=== PATIENT | male | born 1965 | race Caucasian/White ===

== ENCOUNTER 2017-04-02 16:48 | Emergency (ER) | payer BC ==
[2017-04-02 19:35] VITALS: BP 132/88
--- NOTE | 2017-04-02 19:39 | UC ---
Minor Trauma HPI - HPI Summary HPI Summary: Saturday night slipped on ice - fell back and landed on right side/rib no loc Sat was "sore" took Sun improved on Saturday sneezed and felt "cracking" to right ribs since this time increased pain in the area where landed Pt states thought :thre back out" pt laid in bed yesterday and today + heat applied support brace Pt states with "wrong movement" feels sharp pain no sob no n/v no bruising Took 400mg ibuprofen 6pm Took 2 tylenol this morning 8am without relief no change in pain with deep breath when pain comes/intensifies feels like stabbing pain no paresthesia arm pt wearing brace with good support pt's medications reviewed this visit - History of Current Complaint Chief Complaint: UCBackPain Stated Complaint: RIGHT SIDE RIB PAIN Time Seen by Provider: 04/02/17 19:18 Onset/Duration: Sudden Onset Onset Of Pain: Immediate Pain Intensity: 10 Pain Scale Used: 0-10 Numeric Mechanism Of Injury: Fall From A Standing Position Aggravating Factor(s): Coughing, Movement Alleviating Factor(s): Heat, OTC Meds, Other: - splint - Allergies/Home Medications Allergies/Adverse Reactions: Allergies Allergy/AdvReac Type Severity Reaction Status Date / Time No Known Allergies Allergy Verified 04/02/17 19:27 Home Medications: Home Medications Ibuprofen 400 mg PO 04/02/17 [History] PMH/Surg Hx/FS Hx/Imm Hx Previously Healthy: No - Surgical History Surgical History: Yes Surgery Procedure, Year, and Place: RIGHT HIP REPLACEMENT 2012 - Family History Known Family History: Positive: Other - mom cholesterol - Social History Occupation: Employed Full-time Lives: With Family Alcohol Use: Weekly Substance Use Type: None Smoking Status (MU): Never Smoked Tobacco Amount Used/How Often: ONCE A DAY Review of Systems Constitutional: Negative Skin: Negative Cardiovascular: Other All Other Systems Reviewed And Are Negative: Yes Physical Exam Triage Information Reviewed: Yes Appearance: Well-Appearing, No Pain Distress, Well-Nourished Vital Signs: Initial Vital Signs Temp 98.7 F 04/02/17 19:28 Pulse 73 04/02/17 19:28 Resp 16 04/02/17 19:28 BP 132/88 04/02/17 19:28 Pulse Ox 96 02/20/18 19:28 Vital Signs Reviewed: Yes Eye Exam: Normal Eyes: Positive: Conjunctiva Clear ENT Exam: Normal ENT: Positive: Normal ENT inspection, Hearing grossly normal, Pharynx normal Dental Exam: Normal Neck exam: Normal Neck: Positive: Supple, Nontender, No Lymphadenopathy Respiratory Exam: Normal Respiratory: Positive: Chest non-tender, Lungs clear, Normal breath sounds, No respiratory distress, No accessory muscle use Cardiovascular Exam: Normal Cardiovascular: Positive: RRR, No Murmur Musculoskeletal: Positive: Other: - no pain spinous process c/t/l/s + TTP right midax to posterior infrascapular rib pain with direct palpation Pain increases with extension elbows Full AROM c spine Neurological Exam: Normal Neurological: Positive: Alert Psychological Exam: Normal Skin Exam: Normal Skin: Positive: Other - No ecchymosis, contusion, abraison Diagnostics - Radiology No standard instances Radiology Interpretation Completed By: Radiologist - no rib fx, NAD Re-Evaluation - Re-Evaluation First Eval Change: Unchanged - Reviewed imaging with pt support belt incentive spirometer motrin/apap flexeril work note pt comfortable and in agreement with plan Minor Trauma Course/Dx - Course Course Of Treatment: pt present with right posterior rib pain s/p fall and then a sneeze this weekend. Pt with focal pain posterior/midax line pain. worse with movement and direct palp. pt declined additional analagesia. Will check imagina and reassess - Differential Dx/Diagnosis Provider Diagnoses: rib contusion. muscle spasm Discharge - Discharge Plan Condition: Stable Disposition: HOME Prescriptions: Cyclobenzaprine TAB* [Flexeril 10 MG TAB*] 10 mg PO Q8HR #5 tab Patient Education Materials: Muscle Spasm (ED) Forms: *Work Release Referrals: [facility] [place] [facility] [Outside] No Primary Care Phys,NOPCP [Primary Care Provider] - Additional Instructions: - wear splint for support and comfort - alternate ibuprofen (advil, motrin)600mg and tylenol 1000mg every 3 hours for pain - use flexeril, muscle relaxer as prescribed. This medication may cause drowsiness. do NOT drive, operate machinery or drink alcohol while taking this medication - apply moist heat, 20 minutes at a time - then slow, gentle stretching exercises - take deep, slow breaths several times an hour while awake - contact the physician referral center to schedule a follow-up appointment - this office will assist with scheduling with a new primary care provider
--- NOTE | 2017-04-02 20:43 | RAD ---
INDICATION: Right rib pain COMPARISON: None TECHNIQUE: Multiple views of the ribs were obtained. FINDINGS: Bones: There is no evidence of acute rib fracture. LUNGS: The lungs are clear. There is no pneumothorax. Pleural spaces: There is no evidence of hemothorax. Other: None IMPRESSION: NO ACUTE RIB FRACTURE
[2017-04-02] MEDS ORDERED: Cyclobenzaprine TAB* 10 MG PO ONE (20:59)
== END 2017-04-02 21:22 | disposition home or self-care (01) ==
LOC: UCCORT 16:48
DX: S20.221A Contusion of right back wall of thorax, initial encounter (principal); M62.830 Muscle spasm of back; W00.0XXA Fall on same level due to ice and snow, initial encounter; Y93.9 Activity, unspecified; Y92.9 Unspecified place or not applicable
CPT/HCPCS: 99202; A9270-GY; G0463